=== PATIENT | female | born 1980 | race Caucasian/White ===

== ENCOUNTER 2020-09-21 19:54 | Outpatient (REF) | payer OTHER, SELFPAY ==
[2020-09-24 17:51] LABS: COVID-19 RT-PCR UVMMC Result Negative (Negative)
== END 2020-09-21 20:14 ==
LOC: NCHCN 19:54
PROVIDERS: PCP Family Medicine; Visit Provider Nurse Practitioner Family
DX: Z20.828 Contact with and (suspected) exposure to other viral communicable diseases (principal)
CPT/HCPCS: U0003

== ENCOUNTER 2020-12-11 17:31 | Outpatient (REF) | payer OTHER, SELFPAY ==
[2020-12-11 22:06] LABS: Hemoglobin A1C 5.7 % (<5.7)
[2020-12-11 22:16] LABS: Anion Gap 9.7 mmol/L (3-11); BUN 10 mg/dL (7-18); CO2 27.3 mmol/L (21.0-32.0); CREATININE 0.6 mg/dL (0.55-1.02); Calcium 9.1 mg/dL (8.5-10.1); Calculated LDL 157 mg/dL (<100); Chloride 102 mmol/L (98-107); Cholesterol 216 mg/dL (<200); Glucose 94 mg/dL (74-106); HDL Cholesterol 50 mg/dL (40-60); Potassium 3.7 mmol/L (3.5-5.1); Sodium 139 mmol/L (136-145); TSH (W/Ref FT4) 2.14 uIU/mL (0.36-3.74); Triglyceride 45 mg/dL (<150)
[2020-12-13 10:47] LABS: Hepatitis C Ab w Rflx HCV PCR Negative (Negative)
== END 2020-12-11 17:32 | disposition home or self-care (01) ==
LOC: NCHCN 17:31
PROVIDERS: PCP Family Medicine; Visit Provider Family Medicine
DX: Z00.00 Encounter for general adult medical examination without abnormal findings (principal); Z13.1 Encounter for screening for diabetes mellitus; R03.0 Elevated blood-pressure reading, without diagnosis of hypertension; Z13.220 Encounter for screening for lipoid disorders; Z11.59 Encounter for screening for other viral diseases
CPT/HCPCS: 80048; 80061; 86803; 83036; 84443

== ENCOUNTER 2021-04-24 08:33 | Outpatient (REF) | payer OTHER, SELFPAY ==
[2021-04-24 16:14] LABS: Calculated LDL 145 mg/dL (<100); Cholesterol 211 mg/dL (<200); Glucose 77 mg/dL (74-106); HDL Cholesterol 44 mg/dL (40-60); Triglyceride 110 mg/dL (<150)
[2021-04-24 16:21] LABS: Hemoglobin A1C 5.6 % (<5.7)
[2021-04-25 09:51] LABS: HIV-1/2 Ag & Ab Screen Negative (Negative)
== END 2021-04-24 08:34 | disposition home or self-care (01) ==
LOC: NCHCN 08:33
PROVIDERS: PCP Family Medicine; Visit Provider Family Medicine
DX: Z00.00 Encounter for general adult medical examination without abnormal findings (principal); I10 Essential (primary) hypertension; R23.2 Flushing; R51.9 Headache, unspecified
CPT/HCPCS: 80061; 82947; 87389; 83036; 83835

== ENCOUNTER 2021-05-01 03:25 | Outpatient (CLI) | payer OTHER, SELFPAY ==
[2021-05-03 10:16] LABS: Metanephrine, Free <0.20 nmol/L (<0.50); Normetanephrine, Free 0.47 nmol/L (<0.90)
== END 2021-05-01 03:26 | disposition home or self-care (01) ==
LOC: LBO 03:26 → NCHCN 11:13
PROVIDERS: PCP Family Medicine; Visit Provider Family Medicine
DX: I10 Essential (primary) hypertension (principal); R51.9 Headache, unspecified; R23.2 Flushing
CPT/HCPCS: 83835

== ENCOUNTER 2021-05-23 10:10 | Outpatient (REF) | payer OTHER, SELFPAY ==
[2021-05-23 13:54] LABS: Anion Gap 8.4 mmol/L (3-11); BUN 7 mg/dL (7-18); CO2 27.6 mmol/L (21.0-32.0); CREATININE 0.7 mg/dL (0.55-1.02); Calcium 8.8 mg/dL (8.5-10.1); Chloride 105 mmol/L (98-107); Glucose 94 mg/dL (74-106); Potassium 3.8 mmol/L (3.5-5.1); Sodium 141 mmol/L (136-145)
== END 2021-05-23 10:11 | disposition home or self-care (01) ==
LOC: NCHCN 10:10
PROVIDERS: PCP Family Medicine; Visit Provider Family Medicine
DX: I10 Essential (primary) hypertension (principal)
CPT/HCPCS: 80048

== ENCOUNTER 2022-04-17 11:06 | Emergency (ER) | payer BC, SELFPAY ==
[2022-04-17 11:54] VITALS: BP 179/100; PULSE 66; RESP 16; TEMP 37.1; O2SAT 100
[2022-04-17 13:28] LABS: Abs Immature Grans 0.04 10^3/uL (0.0-0.06); Absolute Basophil Count 0.04 10^3/uL (0.0-0.2); Absolute Eosinophil Count 0.12 10^3/uL (0.0-0.7); Absolute Lymphocyte Count 1.99 10^3/uL (1.2-3.4); Absolute Neutrophil Count 7.47 10^3/uL (1.2-6.7); Basophils % 0.4; Eosinophils % 1.2; HGB 14.1 g/dL (11.2-15.7); Immature Grans % 0.4; Lymphocytes % 19.4; MCH 28.2 pg (27.0-33.0); MCHC 32.8 % (32.0-36.0); MCV 86 fL (80-95); MPV 10.1 fL (8.0-11.0); Monocytes % 5.8; Neutrophils % 72.8; Platelet Count 204 10^3/uL (130-400); RDW 13.2 % (11.7-14.6); WBC 10.26 10^3/uL (4.4-10.8)
[2022-04-17 13:30] LABS: Bilirubin Negative (Negative); Blood Large (Negative); Clarity Clear (Clear); Glucose Negative (Negative); Ketones Negative (Negative); Leukocyte Esterase Small (Negative); Nitrite Negative (Negative); Specific Gravity 1.015 (1.005-1.025); Urobilinogen 0.2 EU/dL (Up TO 0.2)
[2022-04-17 13:40] LABS: Bacteria Rare HPF (Negative); C & S Indicated? No/Sq. Contamination; Casts Negative LPF (Negative); Crystals Negative HPF (Negative); Epithelial Cells Moderate HPF (Negative); Mucus Negative (Negative)
[2022-04-17 13:41] LABS: ALT 30 U/L (14-59); AST 13 U/L (15-37); Albumin 4.1 g/dL (3.4-5.0); Alkaline Phosphatase 59 U/L (46-116); Anion Gap 10.2 mmol/L (3-11); BUN 11 mg/dL (7-18); Bilirubin, Total 0.3 mg/dL (0.2-1.0); CO2 27.8 mmol/L (21.0-32.0); CREATININE 0.7 mg/dL (0.55-1.02); Calcium 9.4 mg/dL (8.5-10.1); Chloride 101 mmol/L (98-107); Glucose 136 mg/dL (74-106); Lipase 101 U/L (73-393); Potassium 3.5 mmol/L (3.5-5.1); Sodium 139 mmol/L (136-145); Total Protein 8.2 g/dL (6.4-8.2)
--- NOTE | 2022-04-17 14:03 | ED.GENADUL_ITS ---
Discharge Plan Disposition Patient Disposition: HOME Condition: Stable Discharge Details Clinical Impression: UTI (urinary tract infection), Side pain Primary Care Provider: Marcela Howe ED Provider: Rody Abdi Home Meds and New Rx's Prescriptions: New cephalexin 500 mg capsule 500 mg PO BID 7 Days Qty: 14 0RF Discharge Instructions Instructions: Urinary Tract Infection in Women (ED), Flank Pain (ED) Additional Instructions: Your lab work revealed that you possibly have a urinary tract infection. Your CT scan today is reassuring and shows no evidence of acute concerning or significant findings. Drink plenty of fluids and get plenty of rest. Alternate tylenol and motrin as needed and directed for pain. A prescription for antibiotics was sent electronically to [facility] in [place] to take as directed until finished. You have been given urology follow-up information if needed for reevaluation of your hematuria if this persists or worsens. Your blood pressure is also elevated today. Follow-up with your primary care doctor in 1 week for reevaluation of your symptoms and for continued blood pressure management. Return to the emergency department with any worsening or new concerning symptoms. Referrals: Aguilar Dalton MD [ [facility] STAFF PHYSICIAN] - Discharge Data Discharge Physician: Rody Abdi Medical Decision Making 41-year-old female with a history of hypertension presents with 1 week of left- sided abdominal pain, worse since last night with 1 day of urinary frequency and dysuria which has since resolved. She is currently pain-free. Her blood pressure is hypertensive at 179/100. She is currently not on blood pressure medications. She appears comfortable and nontoxic. Her abdomen is soft mildly tender in the left upper and left lower quadrants. Due to high volume and acuity in the emergency department, screening labs obtained on arrival and note a normal white blood cell count, normal renal function with contaminated urinalysis. Will obtain repeat urinalysis and refer for CT abdomen and pelvis to rule out diverticulitis, gastroenteritis, pancreatitis. Labs and imaging reviewed. White blood cell count within normal limits. Normal electrolytes. Normal hemoglobin. Urinalysis notes 10-20 WBCs with greater than 50 RBCs and trace leukocyte esterase. There is negative bacteria and negative nitrite. Urine culture sent. Considering patient's UTI symptoms with left sided abdominal and flank pain, will treat for UTI. She has no report of fever, vomiting or objective signs of pyelonephritis on CT, so we will treat with Keflex for 7 days. She was given 1 dose here and a prescription sent electronically to her pharmacy. Medical Records Medical records reviewed: Yes I reviewed the patient's medical records. Imaging Data Radiologic Study: Radiologist's impression: CT ABDOMEN ? PELVIS WO CLINICAL HISTORY: ? L sided abd pain, r/o pancreatitis, diverticulitis.? TECHNIQUE:? Imaging Protocol: Axial computed tomography images with coronal and sagittal reformatted images were created and reviewed. COMPARISON:? No exams were available for comparison FINDINGS: ABDOMEN: Lung Bases: Normal where visualized. Liver: Normal density. No measurable mass. Gallbladder and biliary tract: No radiodense calculus or biliary ductal dilation . Pancreas: Normal density, no abnormal calcifications or inflammatory process. Spleen: Normal. Kidneys: Normal size, contour and axis.No radiodense stones or obstructive uropathy. No masses seen. Adrenal glands: No mass is seen. Lymph nodes: Within normal limits.? Abdominal Aorta: Abdominal portion non-dilated. PELVIS:? Bladder:Symmetric distention, no gross wall thickening. Bowel: No obstruction or bowel wall thickening. Appendix is unremarkable.? Peritoneal cavity: No ascites, collection or mesenteric inflammatory response.? No free air.? Reproductive organs: Unremarkable as visualized.? Bones: Within normal limits. Soft Tissues: Within normal limits. IMPRESSION: 1. No acute abdominal pelvic process. Lab Data Lab results reviewed: Yes I reviewed the patient's lab results. Labs: 04/17/22 13:50 Urine - Reflex from Ua Urine Culture - Pending Laboratory Tests Range/Units 04/17/22 04/17/22 04/17/22 12:21 13:15 13:15 WBC (4.4-10.8) 10^3/uL 10.26 RBC (3.93-5.22) 10^6/uL 5.00 Hgb (11.2-15.7) g/dL 14.1 Hct (36.0-46.0) % 43.0 MCV (80-95) fL 86 MCH (27.0-33.0) pg 28.2 MCHC (32.0-36.0) % 32.8 RDW (11.7-14.6) % 13.2 Plt Count (130-400) 10^3/uL 204 MPV (8.0-11.0) fL 10.1 Immature Gran % 0.4 Neutrophils % 72.8 Lymphocytes % 19.4 Monocytes % 5.8 Eosinophils % 1.2 Basophils % 0.4 Nucleated RBC % (0.0-0.3) % 0.0 Absolute Neutrophils (1.2-6.7) 10^3/uL 7.47 H Absolute Lymphocytes (1.2-3.4) 10^3/uL 1.99 Absolute Monocytes (0.1-0.8) 10^3/uL 0.60 Absolute Eosinophils (0.0-0.7) 10^3/uL 0.12 Absolute Basophils (0.0-0.2) 10^3/uL 0.04 Sodium (136-145) mmol/L 139 Potassium (3.5-5.1) mmol/L 3.5 Chloride (98-107) mmol/L 101 Carbon Dioxide (21.0-32.0) mmol/L 27.8 Anion Gap (3-11) mmol/L 10.2 BUN (7-18) mg/dL 11 Creatinine (0.55-1.02) mg/dL 0.7 Estimated GFR/1.73 m2 (mL/min/1.73m2) >= 60.00 Glucose (74-106) mg/dL 136 H Calcium (8.5-10.1) mg/dL 9.4 Total Bilirubin (0.2-1.0) mg/dL 0.3 AST (15-37) U/L 13 L ALT (14-59) U/L 30 Alkaline Phosphatase (46-116) U/L 59 Total Protein (6.4-8.2) g/dL 8.2 Albumin (3.4-5.0) g/dL 4.1 Lipase (73-393) U/L 101 Urine Color (Yellow) Yellow Urine Clarity (Clear) Clear Urine pH (5-8) 6.0 Ur Specific [place] (1.005-1.025) 1.015 Urine Protein (Negative) mg/dL Negative Urine Ketones (Negative) mg/dL Negative Urine Blood (Negative) Large H Urine Nitrite (Negative) Negative Urine Bilirubin (Negative) Negative Urine Urobilinogen (Up TO 0.2) EU/dL 0.2 Ur Leukocyte Esterase (Negative) Small H Urine RBC (0-2) HPF 10-20 H Urine WBC (0-5) HPF 10-20 H Ur Epithelial Cells (Negative) HPF Moderate Urine Crystals (Negative) HPF Negative Urine Bacteria (Negative) HPF Rare Urine Casts (Negative) LPF Negative Urine Mucus (Negative) Negative Urine Other (Negative) Ur Culture Indicated? No/Sq. Contamination Urine Glucose (Negative) mg/dL Negative Range/Units 04/17/22 13:50 WBC (4.4-10.8) 10^3/uL RBC (3.93-5.22) 10^6/uL Hgb (11.2-15.7) g/dL Hct (36.0-46.0) % MCV (80-95) fL MCH (27.0-33.0) pg MCHC (32.0-36.0) % RDW (11.7-14.6) % Plt Count (130-400) 10^3/uL MPV (8.0-11.0) fL Immature Gran % Neutrophils % Lymphocytes % Monocytes % Eosinophils % Basophils % Nucleated RBC % (0.0-0.3) % Absolute Neutrophils (1.2-6.7) 10^3/uL Absolute Lymphocytes (1.2-3.4) 10^3/uL Absolute Monocytes (0.1-0.8) 10^3/uL Absolute Eosinophils (0.0-0.7) 10^3/uL Absolute Basophils (0.0-0.2) 10^3/uL Sodium (136-145) mmol/L Potassium (3.5-5.1) mmol/L Chloride (98-107) mmol/L Carbon Dioxide (21.0-32.0) mmol/L Anion Gap (3-11) mmol/L BUN (7-18) mg/dL Creatinine (0.55-1.02) mg/dL Estimated GFR/1.73 m2 (mL/min/1.73m2) Glucose (74-106) mg/dL Calcium (8.5-10.1) mg/dL Total Bilirubin (0.2-1.0) mg/dL AST (15-37) U/L ALT (14-59) U/L Alkaline Phosphatase (46-116) U/L Total Protein (6.4-8.2) g/dL Albumin (3.4-5.0) g/dL Lipase (73-393) U/L Urine Color (Yellow) Yellow Urine Clarity (Clear) Clear Urine pH (5-8) 6.0 Ur Specific [place] (1.005-1.025) 1.015 Urine Protein (Negative) mg/dL Negative Urine Ketones (Negative) mg/dL Negative Urine Blood (Negative) Large H Urine Nitrite (Negative) Negative Urine Bilirubin (Negative) Negative Urine Urobilinogen (Up TO 0.2) EU/dL 0.2 Ur Leukocyte Esterase (Negative) Trace H Urine RBC (0-2) HPF >50 H Urine WBC (0-5) HPF 10-20 H Ur Epithelial Cells (Negative) HPF Few Urine Crystals (Negative) HPF Negative Urine Bacteria (Negative) HPF Negative Urine Casts (Negative) LPF Negative Urine Mucus (Negative) Negative Urine Other (Negative) Negative Ur Culture Indicated? Yes Urine Glucose (Negative) mg/dL Negative HPI General Mode of arrival: ambulatory . Date/Time Provider Initiated Documentation: 04/17/22 12:16 . Limitations to Documentation: no limitations . Information obtained by: patient . HPI Narrative: Pt is a 41yo F who presents to the ED with a complaint of lower abdominal pain for the past week after eating a calzone, worse since last night but now pain- free. Patient states she ate a calzone 1 week ago and developed severe lower abdominal pain. She states the pain resolved until last night when she had several hours of left-sided sharp abdominal pain. She states the pain has been resolved today. She states she took ibuprofen last night for pain relief. She also admits to dysuria and frequency 5 days ago that has also since resolved. She admits to a normal bowel movement yesterday without rectal bleeding. She denies any fever, nausea, vomiting. Related Data Home Medications Medication Instructions Recorded Confirmed cephalexin 500 mg capsule 500 mg PO BID 7 days #14 caps 04/17/22 Previous Rx's Medication Instructions Recorded cephalexin 500 mg capsule 500 mg PO BID 7 days #14 caps 04/17/22 Allergies Allergy/AdvReac Type Severity Reaction Status Date / Time No Known Allergies Allergy Verified 04/17/22 11:59 General Stated Complaint: FlankPain KEILA: 4 Review of Systems All systems reviewed & are unremarkable except as noted in HPI and below Constitutional Constitutional: Denies chills, Denies excessive sweating, Denies fatigue, Denies fever(s), Denies weakness and Denies weight loss Eyes Eyes: Reports system reviewed and no additional complaints, except as documented and Denies blurry vision ENT Ears, Nose, Mouth, and Throat: Denies vertigo, Denies dizziness, Denies otalgia, Denies nasal congestion, Denies sore throat and Denies throat swelling Cardiovascular Cardiovascular: Denies chest pain, Denies syncope, Denies rapid heart rate and Denies dyspnea Respiratory Respiratory: Denies chest congestion, Denies cough, Denies pain on inspiration and Denies dyspnea Gastrointestinal Gastrointestinal: Reports abdominal pain, Denies diarrhea and Denies vomiting Genitourinary Genitourinary: Denies hematuria, Reports dysuria, Denies flank pain, Reports urinary urgency and Reports other (Urinary frequency) Musculoskeletal Musculoskeletal: Denies back pain and Denies joint swelling Integumentary/Breasts Skin/Breast: Denies lesions and Denies rash Neurologic Neurologic: Denies behavioral changes, Denies confusion, Denies vertigo, Denies dizziness, Denies syncope, Denies localized weakness and Denies weakness Psychiatric Psychiatric: Denies behavioral changes, Denies confusion and Denies depression Endocrine Endocrine: Denies excessive sweating and Denies fatigue Hematologic/Lymphatic Hematologic/Lymphatic: Denies easy bruising and Denies lymphadenopathy Allergic/Immunologic Allergic/Immunologic: Denies throat swelling PFSH All Active Problems (Updated 04/17/22 @ 17:03 by Rody Abdi DO) UTI (urinary tract infection) (Acute) Side pain (Acute) Medical History (Updated 04/17/22 @ 17:03 by Rody Abdi DO) HTN (hypertension) Surgical History (Updated 04/17/22 @ 14:36 by Rody Abdi DO) H/O section Social History Smoking risk assessment performed?: No Exam Const General: cooperative and healthy appearing Orientation: alert, awake and oriented x3 HENMT Head: normal to inspection Ears: hearing grossly normal bilaterally, external ears normal and TM's normal bilaterally General nose exam: external nose normal Face and sinus: normal facial exam Mouth: oral mucosae normal Teeth and gingiva: dentition normal Throat: posterior oropharynx normal Eyes General: appearance normal, both eyes and all related structures Eyelids: eyelids normal Pupils: PERRL EOM: EOM intact bilaterally Neck Neck: normal visual inspection Lymphatic: no lymphadenopathy noted Chest Chest: normal inspection of the chest Resp Effort & Inspection: normal respiratory effort and able to speak in complete sentences Auscultation: clear to auscultation bilaterally Cardio Rate: regular rate Rhythm: regular rhythm GI Inspection: normal to inspection Palpation: soft, not firm, no guarding, no hepatosplenomegaly, no masses and tender in the LLQ and in the LUQ Auscultation: hypoactive bowel sounds Back/Spine/Pelvis Back: no CVA tenderness Skin General skin exam: no rashes or lesions noted Neuro General: patient alert and patient awake Cognition: normal cognition Speech: speech normal Gait: normal gait Motor: muscle tone normal throughout Sensory Exam: no sensory deficits noted Extrem General: normal to inspection, full ROM and capillary refill normal Psych Appearance: grossly normal Mental Status: mental status grossly normal Speech and Movement: speech and movement normal Affect: normal affect Thought Process: normal Course Vital Signs Vital signs: Vital Signs Temperature 98.8 F 04/17/22 11:54 Pulse 66 04/17/22 11:54 Respiratory Rate 16 04/17/22 11:54 Blood Pressure 179/100 H 04/17/22 11:54 Pulse Oximetry 100 04/17/22 11:54 Temperature 98.8 F 04/17/22 11:54 Temperature Source Temporal Artery Scan 04/17/22 11:54 Pulse 66 04/17/22 11:54 Respiratory Rate 16 04/17/22 11:54 Blood Pressure 179/100 H 04/17/22 11:54 Blood Pressure Position Sitting 04/17/22 11:54 Pulse Oximetry 100 04/17/22 11:54 Oxygen Delivery Method Room Air 04/17/22 11:54 Oxygen Flow Rate 0 04/17/22 11:54 Pain Level 0 04/17/22 11:54 Lab/Test Results Lab/Test Results: Laboratory Tests Range/Units 04/17/22 04/17/22 04/17/22 12:21 13:15 13:15 WBC (4.4-10.8) 10^3/uL 10.26 RBC (3.93-5.22) 10^6/uL 5.00 Hgb (11.2-15.7) g/dL 14.1 Hct (36.0-46.0) % 43.0 MCV (80-95) fL 86 MCH (27.0-33.0) pg 28.2 MCHC (32.0-36.0) % 32.8 RDW (11.7-14.6) % 13.2 Plt Count (130-400) 10^3/uL 204 MPV (8.0-11.0) fL 10.1 Immature Gran % 0.4 Neutrophils % 72.8 Lymphocytes % 19.4 Monocytes % 5.8 Eosinophils % 1.2 Basophils % 0.4 Nucleated RBC % (0.0-0.3) % 0.0 Absolute Neutrophils (1.2-6.7) 10^3/uL 7.47 H Absolute Lymphocytes (1.2-3.4) 10^3/uL 1.99 Absolute Monocytes (0.1-0.8) 10^3/uL 0.60 Absolute Eosinophils (0.0-0.7) 10^3/uL 0.12 Absolute Basophils (0.0-0.2) 10^3/uL 0.04 Sodium (136-145) mmol/L 139 Potassium (3.5-5.1) mmol/L 3.5 Chloride (98-107) mmol/L 101 Carbon Dioxide (21.0-32.0) mmol/L 27.8 Anion Gap (3-11) mmol/L 10.2 BUN (7-18) mg/dL 11 Creatinine (0.55-1.02) mg/dL 0.7 Estimated GFR/1.73 m2 (mL/min/1.73m2) >= 60.00 Glucose (74-106) mg/dL 136 H Calcium (8.5-10.1) mg/dL 9.4 Total Bilirubin (0.2-1.0) mg/dL 0.3 AST (15-37) U/L 13 L ALT (14-59) U/L 30 Alkaline Phosphatase (46-116) U/L 59 Total Protein (6.4-8.2) g/dL 8.2 Albumin (3.4-5.0) g/dL 4.1 Lipase (73-393) U/L 101 Urine Color (Yellow) Yellow Urine Clarity (Clear) Clear Urine pH (5-8) 6.0 Ur Specific [place] (1.005-1.025) 1.015 Urine Protein (Negative) mg/dL Negative Urine Ketones (Negative) mg/dL Negative Urine Blood (Negative) Large H Urine Nitrite (Negative) Negative Urine Bilirubin (Negative) Negative Urine Urobilinogen (Up TO 0.2) EU/dL 0.2 Ur Leukocyte Esterase (Negative) Small H Urine RBC (0-2) HPF 10-20 H Urine WBC (0-5) HPF 10-20 H Ur Epithelial Cells (Negative) HPF Moderate Urine Crystals (Negative) HPF Negative Urine Bacteria (Negative) HPF Rare Urine Casts (Negative) LPF Negative Urine Mucus (Negative) Negative Ur Culture Indicated? No/Sq. Contamination Urine Glucose (Negative) mg/dL Negative POC- Test(urine) Negative
--- NOTE | 2022-04-17 14:15 | DI.CT_ITS ---
Exam(s) CT ABDOMEN PELVIS WO EXAM: CT ABDOMEN PELVIS WO CLINICAL HISTORY: L sided abd pain, r/o pancreatitis, diverticulitis. TECHNIQUE: Imaging Protocol: Axial computed tomography images with coronal and sagittal reformatted images were created and reviewed. COMPARISON: No exams were available for comparison FINDINGS: ABDOMEN: Lung Bases: Normal where visualized. Liver: Normal density. No measurable mass. Gallbladder and biliary tract: No radiodense calculus or biliary ductal dilation. Pancreas: Normal density, no abnormal calcifications or inflammatory process. Spleen: Normal. Kidneys: Normal size, contour and axis.No radiodense stones or obstructive uropathy. No masses seen. Adrenal glands: No mass is seen. Lymph nodes: Within normal limits. Abdominal Aorta: Abdominal portion non-dilated. PELVIS: Bladder:Symmetric distention, no gross wall thickening. Bowel: No obstruction or bowel wall thickening. Appendix is unremarkable. Peritoneal cavity: No ascites, collection or mesenteric inflammatory response. No free air. Reproductive organs: Unremarkable as visualized. Bones: Within normal limits. Soft Tissues: Within normal limits. IMPRESSION: 1. No acute abdominal pelvic process. 2. Results of this exam have been verbally communicated with provider. RADIATION DOSE DELIVERED: 811.27mGy.cm Total DLP DATA REPOSITORY: All CT scans at this facility are submitted to the National Radiology Data Registry (NRDR) Dose Index Registry (DIR) with the [employer] ([employer]). RADIATION OPTIMIZATION: All CT scans at this facility use at least one of these dose optimization te chniques: automated exposure control; mA and/or kV adjustment per patient size (includes targeted exa ms where dose is matched to clinical indication); or iterative reconstruction.
[2022-04-17] MEDS: Normal Saline 1,000 ML 1000 ML IV (15:00)
[2022-04-17 15:15] LABS: Bilirubin Negative (Negative); Blood Large (Negative); Clarity Clear (Clear); Glucose Negative (Negative); Ketones Negative (Negative); Leukocyte Esterase Trace (Negative); Nitrite Negative (Negative); Specific Gravity 1.015 (1.005-1.025); Urobilinogen 0.2 EU/dL (Up TO 0.2)
[2022-04-17 15:25] LABS: Bacteria Negative HPF (Negative); Casts Negative LPF (Negative); Crystals Negative HPF (Negative); Epithelial Cells Few HPF (Negative); Mucus Negative (Negative); Other Cells Negative (Negative); RBC >50 HPF (0-2)
[2022-04-17 15:26] LABS: C & S Indicated? Yes
[2022-04-17 16:51] VITALS: BP 175/97; PULSE 73; RESP 17; TEMP 36.4; O2SAT 98
[2022-04-17] MEDS: Cephalexin 500 MG CAP PO (17:45)
[2022-04-17] MEDS: Ketorolac 30 MG/ML VIAL IVP (17:47)
[2022-04-17 17:52] VITALS: BP 164/103; PULSE 68; RESP 18; TEMP 36.4; O2SAT 99
== END 2022-04-17 18:00 | disposition home or self-care (01) ==
PROVIDERS: Emergency Provider Physician Assistant; PCP Family Medicine
DX: N39.0 Urinary tract infection, site not specified (principal); B96.20 Unspecified Escherichia coli [E. coli] as the cause of diseases classified elsewhere; I10 Essential (primary) hypertension
CPT/HCPCS: 36415; 80053; 81025; 83690; 87077; 96361; 96374; 99284; 74176; 81003; 81015; 85025; 87086; 87186; J1885

== ENCOUNTER 2022-04-17 15:20 | Outpatient (REF) | payer BC, SELFPAY ==
[2022-04-17 18:19] LABS: Bilirubin Negative (Negative); Blood Large (Negative); Clarity Clear (Clear); Glucose Negative (Negative); Ketones Negative (Negative); Leukocyte Esterase Small (Negative); Nitrite Negative (Negative); Urobilinogen 0.2 EU/dL (Up TO 0.2)
[2022-04-17 18:29] LABS: Bacteria Few HPF (Negative); C & S Indicated? No/Sq. Contamination; Casts Negative LPF (Negative); Crystals Negative HPF (Negative); Epithelial Cells Moderate HPF (Negative); Mucus Negative (Negative); RBC >50 HPF (0-2)
== END 2022-04-17 15:21 | disposition home or self-care (01) ==
LOC: LBN 15:20
PROVIDERS: PCP Family Medicine; Visit Provider Physician Assistant Medical
DX: R39.89 Other symptoms and signs involving the genitourinary system (principal); N39.0 Urinary tract infection, site not specified
CPT/HCPCS: 81003; 81015

== ENCOUNTER 2023-03-11 11:36 | Outpatient (REF) | payer BC, SELFPAY ==
--- NOTE | 2023-03-11 09:30 | PAPFT_PTH ---
PATIENT: Omaira Johnson LOC: [facility]#:[id number] AGE/SX: 42/F ROOM: RE03/11/[address]: Marcela Howe : 1980 BED: DIS: 03/11/2023 SPEC #: [id number] RECD: 03/11/23 17:57 STATUS: WILLARD WINKLER #: [id number] FARZANA: 03/11/23 09:[address]: Marcela Howe DEPT: [facility] Cytology RECD BY: Cassidy Saucedo Tissues: 1 - CX/ENDOCX FOR PAP SMEARS Procedures: PAP THIN PREP/UVM Screening HPV DNA PROBE Comments: [id number]
== END 2023-03-11 11:37 | disposition home or self-care (01) ==
LOC: NCHCN 11:36
PROVIDERS: PCP Family Medicine; Visit Provider Family Medicine
DX: Z12.4 Encounter for screening for malignant neoplasm of cervix (principal); Z11.51 Encounter for screening for human papillomavirus (HPV); Z01.419 Encounter for gynecological examination (general) (routine) without abnormal findings
CPT/HCPCS: 88142; 87624